=== PATIENT | male | born 1955 | race Two or more races ===

== ENCOUNTER 2018-10-07 21:28 | Emergency (ER) | payer MEDICAID ==
[~2018-10-07] VITALS: Ht 162.6 cm; Wt 68.9 kg
[2018-10-07 21:39] VITALS: BP 139/86
== END 2018-10-08 02:26 | disposition home or self-care (01) ==
LOC: ER 21:30
DX: R22.1 Localized swelling, mass and lump, neck (principal); R91.1 Solitary pulmonary nodule; R07.9 Chest pain, unspecified
CPT/HCPCS: 70490; 71046